=== PATIENT | male | born 1975 | race Caucasian/White ===

== ENCOUNTER 2021-07-15 10:29 | Emergency (ER) | payer OTHER ==
[~2021-07-15] VITALS: Ht 177.8 cm; Wt 79.8 kg
[2021-07-15 11:22] LABS: URINE BILIRUBIN NEGATIVE (Negative); URINE BLOOD NEGATIVE (Negative); URINE CLARITY CLEAR; URINE COLOR YELLOW; URINE GLUCOSE-RANDOM* NEGATIVE (Negative); URINE KETONES NEGATIVE (Negative); URINE LEUKOCYTES-REFLEX NEGATIVE (Negative); URINE NITRITE-REFLEX NEGATIVE (Negative); URINE PROTEIN (DIPSTICK) NEGATIVE (Negative); URINE SPECIFIC GRAVITY 1.015 (1.005-1.035); URINE UROBILINOGEN 0.2 E.U./dl (0.2-1.0)
[2021-07-15 11:44] LABS: HEMOGLOBIN 16.8 gm/dL (14.0-18.0); MCH 31.9 pg (26.0-34.0); MCHC 33.7 g/dL (28.0-37.0); MCV 94.8 fL (80.0-100.0); RBC 5.28 mil/uL (4.50-6.00); RDW 13.4 % (10.5-14.5); WBC 6.2 thou/uL (4.0-11.0)
[2021-07-15 11:48] LABS: ANION GAP 4 mmol/L (7-16); BUN 12 mg/dL (7-18); CALCIUM 9.1 mg/dL (8.5-10.1); CHLORIDE 102 mmol/L (98-107); CO2 29 mmol/L (21-32); CREATININE 0.9 mg/dL (0.7-1.3); GLUCOSE 97 mg/dL (74-106); POTASSIUM 4.8 mmol/L (3.5-5.1); SODIUM 135 mmol/L (136-145)
[2021-07-15 11:58] LABS: ALBUMIN 3.9 g/dL (3.4-5.0); MAGNESIUM 2.2 mg/dL (1.8-2.4); SGOT 18 U/L (15-37); SGPT 35 U/L (30-65); TOTAL BILIRUBIN 0.3 mg/dL (0.2-1.0); TOTAL PROTEIN 7.3 g/dL (6.4-8.2)
[2021-07-15 14:14] VITALS: BP 134/87
--- NOTE | 2021-07-15 15:41 | EKG ---
[place] [address] [place] [address] ELECTROCARDIOGRAM REPORT Name: BAN MOONEY Room #: DEP FER Mitchell#: [id number] Admission: 07/15/21 Attend Phys: Discharge: 07/15/21 Date of : 77 Report #: [id number] [facility] ED Test Date: 2021-07-15 Test Time: 11:44:11 Pat Name: BAN MOONEY Department: Room: Gender: Trap Setter: LUIS E : 1975 Requested By: Milady Centeno Order Number: [id number] MD: Elbert Guan Measurements Intervals [place] Rate: 85 P: 75 TN: 133 QRS: 12 QRSD: 91 T: 70 QT: 361 QTc: 430 Interpretive Statements Sinus rhythm RSR' in V1 or V2, right VCD or RVH ST elev, probable normal early repol pattern No previous ECG available for comparison Electronically Signed On 07-15-2021 15:41:06 PODIATRIST ASSISTANT by Elbert Guan [email or web address] <ELECTRONICALLY SIGNED> By: Elbert Guan MD, [facility] 07/15/21 1541 1144 1144 Elbert Guan MD, FACC /EPI
== END 2021-07-15 14:14 | disposition home or self-care (01) ==
LOC: ER 10:29
PROVIDERS: Emergency Medicine; Nurse Practitioner Family
DX: R55 Syncope and collapse (principal); R91.8 Other nonspecific abnormal finding of lung field; F12.90 Cannabis use, unspecified, uncomplicated; F17.200 Nicotine dependence, unspecified, uncomplicated; Z98.890 Other specified postprocedural states